=== PATIENT | male | born 1995 | race Two or more races ===

== ENCOUNTER 2019-04-23 22:29 | Emergency (ER) | payer SELFPAY ==
[~2019-04-23] VITALS: Ht 182.9 cm; Wt 116.6 kg
--- NOTE | 2019-04-23 23:03 | PHYS DOC ---
Adult General Chief Complaint Chief Complaint: FEVER HPI HPI 23-year-old male presents to the emergency Department complaints of fever, body aches, headache, vomiting. Patient states symptoms started on Monday without s ignificant improvement. She denies any past medical history. He states his been using [id number] medications however has not been working. Nothing makes his symptoms worse, nothing makes his symptoms better. All other ROS negative unless documented in HPI Review of Systems Review of Systems See Above Current Medications Current Medications Current Medications Medications (Trade) Dose Ordered Sig/Enzo Start Time Stop Time Status Last Admin Dose Admin Ondansetron HCl (Zofran) 4 mg 1X ONCE 04/23/19 23:30 04/23/19 23:31 DC 04/23/19 23:24 4 MG Sodium Chloride 1,000 ml @ 1,000 mls/hr 1X ONCE 04/23/19 23:30 04/24/19 00:29 04/23/19 23:23 1,000 MLS/HR Allergies Allergies Allergies Coded Allergies Type Severity Reaction Last Updated Verified No Known Drug Allergies 04/23/19 No Physical Exam Physical Exam See Above Constitutional: Well developed, well nourished, no acute distress, non-toxic appearance. [] HENT: Normocephalic, atraumatic, bilateral external ears normal, oropharynx moist, no oral exudates, nose normal. [] Eyes: PERRLA, EOMI, conjunctiva normal, no discharge. [] Cardiovascular:Heart rate regular rhythm, no murmur [] Lungs & Thorax: Bilateral breath sounds clear to auscultation [] Abdomen: Bowel sounds normal, soft, no tenderness, no masses, no pulsatile masses. [] Skin: Warm, dry, no erythema, no rash. [] Back: No tenderness, no CVA tenderness. [] Extremities: No tenderness, no edema. [] Neurologic: Alert and oriented X 3, no focal deficits noted. [] Psychologic: Affect normal, judgement normal, mood normal. [] Current Patient Data Vital Signs Vital Signs Date Time Temp Pulse Resp B/P (MAP) Pulse Ox O2 Delivery O2 Flow Rate FiO2 04/23/19 22:40 101.1 102 14 148/68 (94) 96 Room Air 101.1 Lab Values Laboratory Tests Test 04/23/19 22:50 White Blood Count 12.0 x10^3/uL (4.0-11.0) H Red Blood Count 5.23 x10^6/uL (4.30-5.70) Hemoglobin 15.2 g/dL (13.0-17.5) Hematocrit 45.6 % (39.0-53.0) Mean Corpuscular Volume 87 fL (79-100) Mean Corpuscular Hemoglobin 29 pg (25-35) Mean Corpuscular Hemoglobin Concent 33 g/dL (31-37) Red Cell Distribution Width 13.4 % (11.5-14.5) Platelet Count 228 x10^3/uL (140-400) Neutrophils (%) (Auto) 77 % (31-73) H Lymphocytes (%) (Auto) 11 % (24-48) L Monocytes (%) (Auto) 12 % (0-9) H Eosinophils (%) (Auto) 0 % (0-3) Basophils (%) (Auto) 0 % (0-3) Neutrophils # (Auto) 9.2 x10^3/uL (1.8-7.7) H Lymphocytes # (Auto) 1.3 x10^3/uL (1.0-4.8) Monocytes # (Auto) 1.4 x10^3/uL (0.0-1.1) H Eosinophils # (Auto) 0.0 x10^3/uL (0.0-0.7) Basophils # (Auto) 0.0 x10^3/uL (0.0-0.2) Sodium Level 138 mmol/L (136-145) Potassium Level 3.6 mmol/L (3.5-5.1) Chloride Level 102 mmol/L (98-107) Carbon Dioxide Level 27 mmol/L (21-32) Anion Gap 9 (6-14) Blood Urea Nitrogen 9 mg/dL (8-26) Creatinine 0.9 mg/dL (0.7-1.3) Estimated GFR (Cockcroft-Gault) 106.5 BUN/Creatinine Ratio 10 (6-20) Glucose Level 124 mg/dL (70-99) H Calcium Level 8.6 mg/dL (8.5-10.1) Total Bilirubin 0.6 mg/dL (0.2-1.0) Aspartate Amino Transferase (AST) 26 U/L (15-37) Alanine Aminotransferase (ALT) 46 U/L (16-63) Alkaline Phosphatase 76 U/L (46-116) Total Protein 8.1 g/dL (6.4-8.2) Albumin 3.6 g/dL (3.4-5.0) Albumin/Globulin Ratio 0.8 (1.0-1.7) L Influenza Type A Antigen Negative (NEGATIVE) Influenza Type B Antigen Negative (NEGATIVE) Laboratory Tests 04/23/19 22:50 Laboratory Tests 04/23/19 22:50 EKG EKG [] Radiology/Procedures Radiology/Procedures [] Course & Med Decision Making Course & Med Decision Making Pertinent Labs and Imaging studies reviewed. (See chart for details) []23-year-old male presents to the emergency Department complaints of fever, body aches, headache, vomiting. Patient states symptoms started on Monday without significant improvement. She denies any past medical history. He states his been using [id number] medications however has not been working. Nothing makes his symptoms worse, nothing makes his symptoms better. Labs/Imaging reviewed Influenza negative IVF x 1 liter, Zofran 4mg IV Recommend dc home with zofran/bentyl as needed Return precautions provided Dragon Disclaimer Dragon Disclaimer This electronic medical record was generated, in whole or in part, using a voice recognition dictation system. Departure Departure Impression: Primary Impression: Nausea & vomiting Additional Impression: Fever Disposition: HOME, SELF-CARE Condition: IMPROVED Referrals: NO PCP (PCP) Patient Instructions: Fever, Adult, Nausea and Vomiting, [id number] Additional Instructions: Recommend follow up with PCP 3 - 5 days Return to the ER with worsening symptoms, intractable pain, fever, altered mental status Tylenol/Motrin as needed for pain Take new medications as prescribed Scripts Dicyclomine Hcl (DICYCLOMINE HCL) 10 Mg Capsule 1 CAP PO PRN Q6HRS for 5 Days, #20 CAP 3 Refills Prov: YURI HERNANDEZ MD 04/23/19 Ondansetron Hcl (ZOFRAN) 4 Mg Tablet 1 TAB PO PRN Q6-8HRS for nausea, #12 TAB Prov: YURI HERNANDEZ MD 04/23/19 Problem Qualifiers Primary Impression: Nausea & vomiting Vomiting type: unspecified Vomiting Intractability: non-intractable Qualified Codes: R11.2 - Nausea with vomiting, unspecified Additional Impression: Fever Fever type: unspecified Qualified Codes: R50.9 - Fever, unspecified YURI HERNANDEZ MD Apr 23, 2019 23:03
[2019-04-23 23:08] LABS: BASO % 0 % (0-3); EOS % 0 % (0-3); HEMATOCRIT 45.6 % (39.0-53.0); HEMOGLOBIN 15.2 g/dL (13.0-17.5); LYMPH # 1.3 x10^3/uL (1.0-4.8); LYMPH % 11 % (24-48); MEAN CORPUSCULAR HEMOGLOBIN 29 pg (25-35); MEAN CORPUSCULAR HGB CONC 33 g/dL (31-37); MEAN CORPUSCULAR VOLUME 87 fL (79-100); MONO # 1.4 x10^3/uL (0.0-1.1); MONO % 12 % (0-9); NEUT # 9.2 x10^3/uL (1.8-7.7); NEUT % 77 % (31-73); PLATELET COUNT 228 x10^3/uL (140-400); RED BLOOD COUNT 5.23 x10^6/uL (4.30-5.70); RED CELL DISTRIBUTION WIDTH 13.4 % (11.5-14.5)
[2019-04-23] MEDS: IV NORMAL SALINE 1000ML BAG 1,000 ML IV ONE (23:23)
[2019-04-23] MEDS: ONDANSETRON PF 4 MG/2 ML VIAL. IV ONE (23:24)
[2019-04-23 23:38] LABS: ALBUMIN 3.6 g/dL (3.4-5.0); ALBUMIN/GLOBULIN RATIO 0.8 (1.0-1.7); CALCIUM 8.6 mg/dL (8.5-10.1); CREATININE 0.9 mg/dL (0.7-1.3); GFR 106.5; POTASSIUM 3.6 mmol/L (3.5-5.1); TOTAL BILIRUBIN 0.6 mg/dL (0.2-1.0); TOTAL PROTEIN 8.1 g/dL (6.4-8.2)
[2019-04-23 23:43] LABS: INFLUENZA A PATIENT NEGATIVE (NEGATIVE); INFLUENZA B PATIENT NEGATIVE (NEGATIVE)
[2019-04-23] MEDS ORDERED: DICY10CA3 PO (23:54)
[2019-04-23] MEDS ORDERED: ONDA4TAB7 PO (23:54)
[2019-04-24 00:24] VITALS: BP 168/74
== END 2019-04-24 00:30 | disposition home or self-care (01) ==
LOC: ER 22:29
DX: R11.2 Nausea with vomiting, unspecified (principal); R50.9 Fever, unspecified; R51 Headache
CPT/HCPCS: 36415; 80053; 85025; 87804; 96361; 96374; 99284; J2405; J7030

== ENCOUNTER 2020-10-13 14:12 | Emergency (ER) | payer SELFPAY ==
[~2020-10-13] VITALS: Ht 182.9 cm; Wt 130.4 kg
[~2020-10-13 14:12] MED LIST: DICY10CA3 PO; ONDA4TAB7 PO
[2020-10-13 15:19] LABS: BILIRUBIN,URINE MODERATE (NEG); CLARITY,URINE CLEAR; COLOR,URINE AMBER; NITRITE,URINE NEGATIVE (NEG); PH,URINE 5.5 (<5.0-8.0); PROTEIN,URINE NEGATIVE (NEG-TRACE)
[2020-10-13] MEDS ORDERED: AMOX875T PO (15:21)
--- NOTE | 2020-10-13 15:21 | PHYS DOC ---
Past Medical History Past Medical History: No Pertinent History Past Surgical History: No Surgical History Smoking Status: Never Smoker Alcohol Use: Occasionally Drug Use: Marijuana General Adult EDM: Chief Complaint: SKIN PROBLEM HPI: HPI: Patient is a 25 year old male patient who presents with generalized rash and malaise. Patient reports he had a fever and sore throat that started 2 days ago, state it has gotten a little worse. States he has also developed an itchy rash to his back, hand, and feet over the past couple days. States no exposure to ill persons, but does relate he had been around his nephew who just had [id number]-[id number] disease. States he has not taken any medication. Denies any cough, nausea, vomiting, dyspnea. Review of Systems: Review of Systems: Constitutional: States recent fever, states malaise. Eyes: Denies change in visual acuity. [] HENT: Denies nasal congestion does report he had a sore throat started couple days ago. Respiratory: Denies cough or shortness of breath. [] Cardiovascular: Denies chest pain or edema. [] GI: Denies abdominal pain, nausea, vomiting, bloody stools or diarrhea. [] : Denies dysuria. [] Musculoskeletal: Denies back pain or joint pain. [] Integument: Reports generalized rash to back, hands, feet, mouth Neurologic: Denies headache, focal weakness or sensory changes. [] Endocrine: Denies polyuria or polydipsia. [] Lymphatic: Denies swollen glands. [] Psychiatric: Denies depression or anxiety. [] Heart Score: C/O Chest Pain: No Risk Factors: Risk Factors: DM, Current or recent (<one month) smoker, HTN, HLP, family history of CAD, obesity. Risk Scores: Score 0 - 3: 2.5% MACE over next 6 weeks - Discharge Home Score 4 - 6: 20.3% MACE over next 6 weeks - Admit for Clinical Observation Score 7 - 10: 72.7% MACE over next 6 weeks - Early Invasive Strategies Allergies: Allergies: Allergies Coded Allergies Type Severity Reaction Last Updated Verified No Known Drug Allergies 04/23/19 No Physical Exam: PE: Constitutional: Well developed, well nourished, no acute distress, non-toxic appearance. [] HENT: Normocephalic, atraumatic, bilateral external ears normal, oropharynx moist, nose normal. [] Tonsils 3+, erythematous. Small vesicles noted to roof of mouth. Vesicles noted to upper lip and at lateral margin of lips. No [place] spots. Eyes: PERRLA, EOMI, conjunctiva normal, no discharge. [] Neck: Normal range of motion, no tenderness, supple, no stridor. [] Cardiovascular:Heart rate regular rhythm, no murmur [] Lungs & Thorax: Bilateral breath sounds clear to auscultation [] Abdomen: Bowel sounds normal, soft, no tenderness, no masses, no pulsatile masses. [] Skin: Warm, dry, no erythema. Flat generalized rash to back. Hands with scattered broken and then broken vesicles without tenderness location, similar lesions noted to bilateral feet. No fluid discharge noted from lesions. No tenderness noted to lesions. Back: No tenderness, no CVA tenderness. [] Extremities: No tenderness, no cyanosis, no clubbing, ROM intact, no edema. [] Neurologic: Alert and oriented X 3, normal motor function, normal sensory function, no focal deficits noted. [] Psychologic: Affect normal, judgement normal, mood normal. [] Current Patient Data: Vital Signs: Vital Signs Date Time Temp Pulse Resp B/P (MAP) Pulse Ox O2 Delivery O2 Flow Rate FiO2 10/13/20 14:32 98.2 92 18 116/62 (80) 100 Room Air 98.2 EKG: EKG: [] Radiology/Procedures: Radiology/Procedures: [] Course & Med Decision Making: Course & Med Decision Making Pertinent Labs and Imaging studies reviewed. (See chart for details) [] Given recent exposure of patient to child with fifth disease, and with patient having lesions on his hand, feet, mouth, likely similar diagnosis. Superimposed with strep infection causing sore throat, fever, malaise, generalized strep-like rash. Will recommend patient take antibiotics, over-the- counter anti a histamines, and follow-up with primary care provider as needed. Patient agree with this plan. Patient does not appear toxic, appears well without dyspnea or other concerning findings at this time. Jackson Disclaimer: Jackson Disclaimer: This electronic medical record was generated, in whole or in part, using a voice recognition dictation system. Departure Departure Impression: Primary Impression: Hand, foot and mouth disease Additional Impression: Radha Disposition: HOME / SELF CARE / HOMELESS Condition: STABLE Referrals: NO PCP (PCP) Patient Instructions: Hand, Foot, and Mouth Disease, [id number], Scarlet Fever, [id number] Additional Instructions: As discussed, take the antibiotics as prescribed. Replace your toothbrush in 48 hours after you have been on the antibiotics Take Benadryl at night for the itching and the rash, you may take 1 or 2 tablets at bedtime You may alternatively take Cetirizine or Loratadine, 1 tablet daily, this will cause less drowsiness. The rash on your face/hands/mouth will heal, it may just look awful for up to 2 weeks typically Take tylenol or ibuprofen as needed. Scripts Amoxicillin (AMOXICILLIN) 875 Mg Tablet 1 TAB PO BID, #20 TAB Prov: SHELLI AZAR APRN 10/13/20 SHELLI AZAR APRN Oct 13, 2020 15:21
[2020-10-13 15:28] VITALS: BP 103/65
[2020-10-13 15:42] LABS: BACTERIA,URINE MANY /HPF (0-FEW)
[2020-10-13 15:43] LABS: RBC,URINE 0 /HPF (0-2)
== END 2020-10-13 15:39 | disposition home or self-care (01) ==
LOC: ER 14:12
DX: B08.4 Enteroviral vesicular stomatitis with exanthem (principal); A38.9 Scarlet fever, uncomplicated
CPT/HCPCS: 81001; 87086; 99283